=== PATIENT | female | born 1940 | race Caucasian/White ===

== ENCOUNTER 2020-01-02 17:08 | Emergency (ER) | payer MEDICARE, BC ==
[~2020-01-02] VITALS: Ht 162.6 cm; Wt 52.2 kg
[2020-01-02 17:22] LABS: *BILIRUBIN,URIN NEGATIVE (NEGATIVE); *BLOOD, URINE 3+ (NEGATIVE); *CLARITY,URINE SLIGHTLY CLOUDY (CLEAR); *COLOR,URINE LIGHT YELLOW (YELLOW); *KETONES,URINE NEGATIVE (NEGATIVE); *UROBILINOGEN,URINE 0.2 E.U./dl (NORMAL); LEUKOCYTE ESTERASE ,URINE 2+ (NEGATIVE); NITRITE, URINE NEGATIVE (NEGATIVE); PH,URINE 5.5 (5.0-8.0); UGLUCOSE NEGATIVE (NEGATIVE)
[2020-01-02] MEDS ORDERED: NITROFURANTOIN/NITROFURAN MAC 100 MG CAPSULE PO ONE ×2 (18:00→18:06)
--- NOTE | 2020-01-02 18:05 | NUR ---
Patient discharged to home in stable condition with brisk steady gait. Written and verbal after care instructions was given to patient. Patient verbalized understanding and compliance of instructions. Stressed follow up with primary doctor was reiterated to patient. Patient was also told to return to ER for worsening of signs and symptoms.
[2020-01-02 21:19] LABS: BACTERIA,URINE MODERATE /HPF (NONE SEEN); SQUAMOUS EPITHELIAL CELL,UR FEW /HPF (NONE SEEN); WBC,URINE 20-50 /HPF (0-3)
== END 2020-01-02 18:07 | disposition home or self-care (01) ==
LOC: ER 17:08
DX: N39.0 Urinary tract infection, site not specified (principal); K50.90 Crohn's disease, unspecified, without complications
CPT/HCPCS: 87077; 87086; A4663